=== PATIENT | female | born 1935 | race Caucasian/White ===

== ENCOUNTER → 2016-11-14 | Outpatient (CLI) | payer MEDICARE, OTHER ==
[~2016-11-14] MED LIST: ACIPHEX20 MG PO; ALDACTONE DPS25 MG PO; CALTRATE-600 W600 MG PO; FLEXERIL-DPS10 MG PO; LIPITOR40 MG PO; OXY IR DPS5 MG PO; TOPROL XL200 MG PO; TOVIAZ8 MG PO; TYLENOL EXTRA500 M1 PO; ULTRAM DPS50 MG PO; XARELTO10 MG PO
== END | disposition home or self-care (01) ==
LOC: PTH.S 10:06 → EDBD 10:06 → PTH.S 16:44
DX: Z01.818 Encounter for other preprocedural examination (principal); I10 Essential (primary) hypertension

== ENCOUNTER 2016-12-03 07:06 | Inpatient (IN) | payer MEDICARE, OTHER ==
[~2016-12-03] VITALS: Ht 157.5 cm; Wt 81.4 kg
--- NOTE | 2016-12-03 21:16 | OR ---
ADMIT: 12/03/2016 RM/LOC: 529 [facility] MR#: [id number] [address] [address] PRASHANTH LEVIN [address] [place] [address] Operative/Delivery Room Report SEX: F AGE: 81 : 1935 SURGERY DATE: 12/03/2016 SURGEON: Calixto Ricketts MD SPINE SPECIALIST: David Quezada PA-C PREOPERATIVE DIAGNOSIS: Left hip degenerative joint disease. POSTOPERATIVE DIAGNOSIS: Left hip degenerative joint disease. PROCEDURES: 1. Left anterior total hip arthroplasty. 2. Intra-articular Exparel block. ANESTHESIA: Spinal. COMPLICATIONS: None. ESTIMATED BLOOD LOSS: 100 mL. COMPONENTS: 1. A 54 mm Gription Highland cup. 2. One acetabular screw. 3. Hole eliminator. 4. A 36-mm neutral AltrX liner. 5. A 11-mm standard offset Corail stem. 6. A +5 x 36 mm metal head. DESCRIPTION OF PROCEDURE: The patient was taken to the operating room. The correct hip was identified and marked in the preop holding area. The preoperative leg lengths were documented. The patient received a spinal anesthetic. At that point, the patient had traction boots applied. The patient was placed on the [place] operative table. A perfect fluoroscopic AP pelvis was obtained along with a perfect AP of the operative hip and printed for preoperative templating purposes. At that point, the left hip was prepped and draped in a standard fashion and an anterior approach was performed. An incision was made lateral and inferior to the anterior superior iliac spine extending distally. Dissection was carried through subcutaneous tissue down to the tensor fascia. The fibers of the tensor fascia were identified in oblique fashion. The tensor fascia was then opened up along its muscle fibers. An Allis clamp was placed on the anterior fascial border. The tensor muscle itself was then swept off with blunt dissection and retracted posteriorly. At that point, the rectus was elevated off the anterior hip capsule. The lateral circumflex vessels were identified and cauterized. A Cobra retractor was placed above the superior femoral neck to retract the tensor posteriorly. The rest of the rectus was elevated off the anterior hip capsule and a second retractor was placed around the medial femoral neck. An L-shaped capsulotomy was perfomed through the hip capsule down to the intertrochanteric line and extended along the intertrochanteric line to the level of the lesser ADMIT: 12/03/2016 RM/LOC: 529 [facility] MR#: [id number] [address] [address] PRASHANTH LEVIN [address] [place] [address] Operative/Delivery Room Report SEX: F AGE: 81 : 1935 trochanter. Tag stitches were placed in the medial and lateral border of the hip capsule. We also released the superior hip capsule out of the trochanteric shoulder region. At that point, we placed our Cobra retractors in an intra- articular fashion for improved exposure to complete our capsular releases intra-articularly. A femoral neck cut was then made based on templating using the trochanteric shoulder as a bony landmark. We then externally rotated the hip 20 degrees for improved exposure and removed the femoral head from the acetabulum with no undue difficulty. Once the femoral head was removed, we again completed our capsular release around the inferior femoral neck to the level of lesser trochanter, released the superior capsule off the greater trochanteric shoulder in its entirety. We then placed slight traction on the femur in 20 degrees external rotation and placed a blunt-tip Cobra retractor over the anterior acetabular border. A second blunt Cobra was placed around the posterior acetabular border. All the remaining labrum was excised and a episiotomy performed to the inferior capsule to improve exposure. We cauterized the fovea and removed any remaining tissue in the depth of the acetabulum. We sequentially reamed the acetabulum under direct visualization up to a 53 size reamer. We elected to use a 54 size acetabular component. We put the acetabular component on a curved general office dispatcher and placed it within the depths of the acetabulum. At that point we removed all retractors; brought in fluoroscopy; and again obtained a perfect AP of the pelvis followed by a perfect AP of the hip. Under fluoroscopic guidance, we impacted the acetabular component in approximately 45 degrees of inclination and 20 degrees of anteversion. One acetabular screws were now placed with good purchase and no supplemental screws were required. Any peripheral osteophytes were circumferentially removed around the acetabular component. A hole eliminator was placed in the acetabular component and a neutral 36-mm AltrX liner was impacted within the acetabular component. A partial intra-articular block with Exparel was performed at this point in time. Once our acetabular preparation was completed, all the acetabular retractors were removed. We then exposed the femur by rotating it into neutral position and taking all traction off the femur. A femoral elevating hook was placed posterior to the trochanteric ridge. The foot was dropped down to 45 degrees and the leg maximally externally rotated no undue tension. We made sure our inferior capsular release was complete and placed a #1 retractor over the tip of the trochanter. Any remaining capsule was released off the tip of the trochanter and the piriformis tendon and a conjoined tendon were also released for exposure. At that point, you could feel the femur give, and we were able to elevate it up and out of the wound. The femur was externally rotated to approximately 120 degrees and the foot dropped to the floor as the leg was adducted. The trochanteric elevating hook was manually pulled in the anterior lateral direction as the elevating bar was raised to support it. At that point, we had excellent femoral exposure. A Malabar retractor was placed over the tip of the trochanter and a femoral neck retractor around the medial calcar region to improve exposure. The proximal femur was opened with a box osteotome and a canal finder was used to identify the femoral canal. The proximal femur was sequentially broached up to an 11 mm Corail broach. We did overream the distal canal to be sure we did not have a distal femoral fit. At that point, we left ADMIT: 12/03/2016 RM/LOC: 529 [facility] MR#: [id number] [address] [facility] [address] [place] [id number] PRASHANTH LEVIN [address] [place] [address] Operative/Delivery Room Report SEX: F AGE: 81 : 1935 the broach in the canal and calcar planed the neck. We then reduced the hip with a standard off-set femoral neck and a +5 x 36-mm head. All the retractors and femoral hook were removed. Using manual traction, we were able to reduce the hip into the acetabulum with no undue difficulty. A perfect fluoroscopic AP of the pelvis followed by a perfect AP of the hip was obtained and appropriate leg length and offset were confirmed. We replaced our femoral elevating hook posterior to the trochanter. A bone hook and manual traction were used to dislocate the hip, again externally rotating the femur in its entirety as the foot was dropped to the floor and leg adducted. We removed the trial components, replaced a Malabar retractor, and a femoral neck retractor. The broach was removed and the appropriate real components opened. We then impacted a size 11 mm standard offset Corail stem down the femoral canal with excellent press-fit. We impacted a +5 x 36 mm metal head on the trunnion. All retractors were removed, using manual traction the hip was reduced, and again was found to be stable. A final fluoroscopic AP pelvis and AP hip was obtained to confirm appropriate leg length, offset, and component positioning. We then irrigated out the wounds thoroughly and repaired the anterior capsular structures with #5 Ti-Cron. Our intra-articular Exparel block was completed including all soft tissues. The tensor fascia was repaired with a running and interrupted 0 Vicryl suture. We closed subQ with 2-0 Vicryl and ran a subcuticular Monocryl stitch. A Prineo hip wound dressing was applied and sterile dressings applied. The patient was taken off the HANA table, transferred to a standard OR bed, and taken to the recovery room in stable condition with no complications. Calixto Ricketts MD/ jessica JOB #: [id number] CC: Calixto Ricketts, Attending Physician Xiao Garland, Family Physician
[2016-12-07] MEDS ORDERED: LIPITOR40 MG PO (10:43)
[2016-12-07] MEDS ORDERED: TOPROL XL200 MG PO (10:43)
[2016-12-07] MEDS ORDERED: ACIPHEX20 MG PO (10:43)
[2016-12-07] MEDS ORDERED: TOVIAZ8 MG PO (10:43)
[2016-12-07] MEDS ORDERED: OXY IR DPS5 MG PO (10:44)
[2016-12-07] MEDS ORDERED: ULTRAM DPS50 MG PO (10:44)
[2016-12-07] MEDS ORDERED: ALDACTONE DPS25 MG PO (10:44)
[2016-12-07] MEDS ORDERED: XARELTO10 MG PO (10:44)
--- NOTE | 2016-12-25 16:15 | HP ---
ADMIT: 12/03/2016 RM/LOC: W.02 [facility] MR#: [id number] [address] [place] [id number] PRASHANTH LEVIN [address] [place] [address] Pre-OP History and Physical SEX: F AGE: 81 : 1935 DATE OF SERVICE: CHIEF COMPLAINT: Hip pain. HISTORY OF PRESENT ILLNESS: The patient is a 81-year-old female, longstanding history of left hip pain. Left hip pain limits her activity. She has failed conservative care, now being admitted for left total hip arthroplasty. PAST MEDICAL HISTORY: Include arthritis, history of DVT, reflux, and hypertension. PAST SURGICAL HISTORY: Include back surgery, carpal tunnel release, and cataracts. MEDICATIONS: Include: 1. Mupirocin. 2. Meloxicam. 3. Calcium. 4. Metoprolol. 5. Atorvastatin. 6. Spironolactone. 7. Xarelto. 8. Toviaz. ALLERGIES: NONE. SOCIAL HISTORY: Denies any tobacco or alcohol use. REVIEW OF SYSTEMS: Negative. PHYSICAL EXAMINATION: Healthy-appearing female in no acute distress. Walks with an antalgic gait on the left lower extremity. Pain with any motion of left hip. We can internally rotate to 20 degrees, externally rotate to 35 degrees, flex to 100. Legs neurovascularly intact. ADMIT: 12/03/2016 RM/LOC: W.02 [facility] MR#: [id number] [address] [place] [phone] ISSASAEEDDEYSIPRASHANTH A [address] [place] [address] Pre-OP History and Physical SEX: F AGE: 81 : 1935 DIAGNOSTIC DATA: X-rays AP, lateral shows advanced left hip arthritis. No joint space remaining. IMPRESSION: 1. Advanced left hip degenerative joint disease. 2. History of deep venous thrombosis. PLAN: Talked about different options. Failed conservative care. Plan on doing left anterior total hip arthroplasty. She is aware of different risks, benefits, and options and agreed to proceed. She has been seen and cleared from a medical standpoint. Calixto Ricketts MD/ jessica JOB #: [id number] CC: Calixto Ricketts, Attending Physician UNKNOWN, Family Physician
--- NOTE | 2016-12-25 16:15 | DS ---
ADMIT: 12/03/2016 RM/LOC: 529 [facility] MR#: [id number] [address] [address] PRASHANTH LEVIN [address] [place] [address] General Discharge Summary SEX: F AGE: 81 : 1935 ADMISSION DATE: 12/03/2016 DISCHARGE DATE: 12/06/2016 REASON FOR ADMISSION: Elective left total hip arthroplasty after failed conservative management for osteoarthritis. PREOPERATIVE DIAGNOSIS: Left hip degenerative joint disease. POSTOPERATIVE DIAGNOSIS: Left hip degenerative joint disease. PROCEDURE PERFORMED: Left anterior total hip arthroplasty. ANESTHETIC: Spinal. COMPLICATIONS: None. ESTIMATED BLOOD LOSS: 100 mL. SURGEON: Calixto Ricketts MD. REHABILITATION PROGRAM COORDINATOR: David Quezada PA-C ACTIVE MEDICAL PROBLEMS: 1. Osteoarthritis. 2. History of DVT. 3. Reflux. 4. Hypertension. HOSPITAL COURSE: Prashanth was admitted on 12/03/2016 for elective left total hip arthroplasty, it was completed successfully by Dr. Ricketts from a direct anterior approach. There were no complications. Postoperatively, she did very well. Pain controlled with use of the intraoperative pain injection, cocktail, as well as oral analgesics. Postop day #1 and #2, were fairly comfortable. Day #3, she had some soreness but stabilized. In the evening on day of surgery into the overnight on to postoperative day #1, she did have a couple of lower blood pressures in the 80/45 range. She held her antihypertensive and was administered 500 mL bolus of normal saline. She did well with this. Pressures stabilized and was otherwise asymptomatic. On postoperative day #1 in the evening, and on to postoperative day #2, she had some mild nausea, so they increased her Zofran to 8 mg q.6 hours and this did well for her. She did experience mild acute surgical blood-loss anemia. Hemoglobin dropped to 9.0, but remained hemodynamically stable and not requiring transfusion. Postop day #3, she was stable and ready for discharge with plans to go to senior living for postoperative rehabilitation. DISCHARGE MEDICATIONS: 1. Lipitor 40 mg daily. ADMIT: 12/03/2016 RM/LOC: 529 [facility] MR#: [id number] [address] [address] PRASHANTH LEVIN [address] [place] [address] General Discharge Summary SEX: F AGE: 81 : 1935 2. Fesoterodine 8 mg daily. 3. Metoprolol 200 mg daily. 4. Rabeprazole 20 mg daily. 5. Spironolactone 25 mg daily. 6. Tramadol 50 mg 1 to 2 q.6 p.r.n. 7. OxyIR 5 mg, 1 to 2 q.4h p.r.n. 8. Xarelto 10 mg daily for 30 days. 9. Tylenol 650 mg q.6 p.r.n. DISCHARGE INSTRUCTIONS: Prashanth will undergo therapy per anterior total hip arthroplasty protocol. Follow in the Orthopedic office in 2 weeks for wound check, 6 weeks with x-rays. Follow up with primary care as directed. David Quezada PA-C / Calixto Ricketts MD / jessica JOB #: [id number] CC: Calixto Ricketts MD, Attending Physician Xiao Garland MD, Family Physician
[2016-12-29] MEDS ORDERED: TYLENOL EXTRA500 M1 PO (08:34)
[2016-12-29] MEDS ORDERED: CALTRATE-600 W600 MG PO (08:35)
[2016-12-29] MEDS ORDERED: FLEXERIL-DPS10 MG PO (08:35)
== END 2016-12-06 13:40 | disposition home or self-care (01) | DRG 470 ==
LOC: EDBD → WOR 07:06 → 5MS 07:06
PROVIDERS: ADMIT Orthopaedic Surgery
PROC: 0SRB02A Replacement of Left Hip Joint with Metal on Polyethylene Synthetic Substitute, Uncemented, Open Approach (ICD-10-PCS; principal; 2016-12-03)
DX: M16.12 Unilateral primary osteoarthritis, left hip (principal); I10 Essential (primary) hypertension; D62 Acute posthemorrhagic anemia; K21.9 Gastro-esophageal reflux disease without esophagitis; Z86.718 Personal history of other venous thrombosis and embolism; Z86.73 Personal history of transient ischemic attack (TIA), and cerebral infarction without residual deficits

== ENCOUNTER 2016-12-22 13:12 | Emergency (ER) | payer MEDICARE, OTHER ==
[~2016-12-22 13:12] MED LIST changes: -CALTRATE-600 W600 MG PO; -FLEXERIL-DPS10 MG PO; -TYLENOL EXTRA500 M1 PO
--- NOTE | 2016-12-27 19:07 | ER ---
ADMIT: 12/22/2016 RM/LOC: ER [facility] MR#: [id number] 2620 [facility] [address] [place] [phone] PRASHANTH LEVIN [address] [place] [address] Emergency Room Report SEX: F AGE: 81 : 1935 DATE: 12/22/2016 SUBJECTIVE: The patient has had a left hip replaced 3 weeks ago, was doing well. Suddenly, she complained of pain. She has some muscle contraction. She is very concerned. 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 PAST MEDICAL HISTORY: Includes: 1. High cholesterol. 2. Hypertension. 3. Laminectomy. 4. Left hip replacement. PHYSICAL EXAMINATION: VITAL SIGNS: Within normal limits. States she has a temperature of 99.1. GENERAL: She is alert and oriented. Does not seem to have any signs of infection. Her wound looks very nice, has healed well. There is no redness. There is no warmth. I went ahead and I did an ultrasound to rule out DVT, and an x-ray in view of the pain that she was complaining about. Her left hip prosthesis is intact. No new findings. Ultrasound is negative for DVT. She did not know if she had to be admitted to the ER for pain management. I contacted Dr. Dwyer. We discussed her going home with her daughter for the night and given her some muscle relaxers, so I wrote for Flexeril and [place]. She cannot take NSAIDs, but she has done slightly well with the morphine we gave her here in the ER. CLINICAL IMPRESSION: Left hip pain post surgery, muscle fasciculation. Muscle relaxers were added to her therapy and a followup tomorrow. Call Dr. Garland's office. See if she can get visiting nurses or skilled care. Follow up instructions given and awareness of pain medication with muscle relaxer. They can increase the probability of her having another fall. She is to be very careful when using it and not to use her meloxicam if she uses [place]. The patient verbalized understanding. Released to home with her daughter. KOURTNEY Perry / Alok Galeana MD / jessica JOB #: [id number] CC: Benji De La Torre MD, Attending Physician Xiao Garland MD, Family Physician
[2016-12-29] MEDS ORDERED: TYLENOL EXTRA500 M1 PO (08:34)
[2016-12-29] MEDS ORDERED: CALTRATE-600 W600 MG PO (08:35)
[2016-12-29] MEDS ORDERED: FLEXERIL-DPS10 MG PO (08:35)
== END 2016-12-22 18:50 | disposition home or self-care (01) ==
LOC: ER 13:12 → EDBD 13:12 → ER 13:12
DX: M25.552 Pain in left hip (principal); R25.3 Fasciculation; I10 Essential (primary) hypertension; Z79.899 Other long term (current) drug therapy

== ENCOUNTER → 2016-12-24 | Outpatient (CLI) | payer MEDICARE, OTHER ==
[~2016-12-24] MED LIST changes: +CALTRATE-600 W600 MG PO; +FLEXERIL-DPS10 MG PO; +TYLENOL EXTRA500 M1 PO
== END | disposition home or self-care (01) ==
LOC: PTH.S 16:57
DX: M25.552 Pain in left hip (principal); M25.452 Effusion, left hip

== ENCOUNTER 2016-12-26 04:09 | Inpatient (IN) | payer MEDICARE, OTHER ==
[~2016-12-26] VITALS: Ht 157.5 cm; Wt 79.9 kg
[~2016-12-26 04:09] MED LIST changes: -CALTRATE-600 W600 MG PO; -FLEXERIL-DPS10 MG PO; -TYLENOL EXTRA500 M1 PO
--- NOTE | 2016-12-26 06:55 | ER ---
ADMIT: 12/26/2016 RM/LOC: ER [facility] MR#: [id number] 2620 [facility] [address] [place], [place] [address] PRASHANTH LEVIN [address] [place] [address] Emergency Room Report SEX: F AGE: 81 : 1935 DATE: 12/26/2016 TIME: 0409 hours. Please refer to my T-sheet for complete H and P. HISTORY OF PRESENT ILLNESS: Briefly, the patient is a 81-year-old, who had a hip replaced on December 03. She was doing well for a while, but then she started having more pain in the hip. She has actually been seen in the ER, seen by Dr. Ricketts and followed, but she says she came in tonight because the pain is getting worse. It is just not improving. She had blood work done on the , today's early hours of the , and has not heard the results. PHYSICAL EXAMINATION: VITAL SIGNS: Here are stable. HEENT: Grossly normal. ABDOMEN: Soft. EXTREMITIES: Left lower extremity is swollen, tender in the thigh and very tense. The incision is not erythematous, looks well-healed. She has some ecchymosis distally. No pain in the calf, and strong pulses. EMERGENCY DEPARTMENT COURSE: I repeated her CBC, it was normal except hemoglobin 6.8, the one drawn about 36 hours ago was 7.7. Chemistries were normal except sodium 134, BUN 28, glucose 129. We did an ultrasound that revealed a lot large left thigh hematoma with a pseudoaneurysm, what appeared to be the deep femoral artery. At this point, I talked to Dr. Dwyer. I typed and crossed her for 1 unit of packed cells. We are adding coags, we will transfuse when they are ready. She will be admitted to the hospital. ASSESSMENT: 1. Left thigh pseudoaneurysm. 2. Left hip hematoma. 3. Anemia. 4. Status post left hip replacement. PLAN: Admit to the hospital. Leonel Porter MD/ jessica JOB #: [id number] CC: Leonel Porter MD, Attending Physician Xiao Garland MD, Family Physician
[2016-12-29] MEDS ORDERED: TYLENOL EXTRA500 M1 PO (08:34)
[2016-12-29] MEDS ORDERED: FLEXERIL-DPS10 MG PO (08:35)
[2016-12-29] MEDS ORDERED: CALTRATE-600 W600 MG PO (08:35)
--- NOTE | 2017-01-03 12:27 | DS ---
ADMIT: 12/26/2016 RM/LOC: 405 [facility] MR#: [id number] 2620 [facility] [address] [place], [place] [address] POONAMDEYSIPRASHANTH A [address] [place] [address] Discharge Summary SEX: F AGE: 81 : 1935 ADMISSION DATE: 12/26/2016 DISCHARGE DATE: 12/28/2016 FINAL DIAGNOSIS: 1. Acute blood loss anemia. 2. Thigh hematoma from femoral artery bleed. 3. Interventional Radiology left thigh hematoma aspirate and left leg angiogram with distal femoral artery pseudoaneurysm. 4. Acute blood loss anemia. 5. Hypertension. 6. Recent total hip arthroplasty. REASON FOR ADMISSION: This is a 81-year-old female, with a total hip arthroplasty about three weeks ago. She presented with increased pain and swelling in her leg and decreased hemoglobin. She was seen for questionable pseudoaneurysm and femoral artery bleed. Interventional Radiology evaluated her with angiogram and found there was a perforating artery over the leak but no real aneurysm. She was given a unit of blood initially. Hemoglobin came up to 8.4. She felt much better after that. Was given a little IV fluid. She was seen by Dr. Ricketts. Hip was evaluated and showed no signs of infection. In fact, a hip aspirate was obtained and this was negative for infection. She continued to work with therapy and by the was feeling pretty well. Blood pressure was 114/50, mildly elevated temp at 99.6 and pulse of 77. She was feeling well enough to go home so she was set up with home health care which she had before and was discharged to home. No anticoagulation because of her acute blood loss anemia. Other medications will be Lipitor 40 mg daily, Rabeprazole 20 mg daily, Toprol-XL 200 mg daily, Toviaz 8 mg daily, Extra Strength Tylenol 500 mg b.i.d., Flexeril 10 mg t.i.d. p.r.n. and calcium 600 mg daily. She will hold her spironolactone for now. She will continue with PT and OT for home health care. Regular diet. She will have a BMP and a CBC in [address] Garland in 2 weeks. Gus Crowder MD/ rochelle JOB #: [id number] CC: Xiao Garland MD, Attending Physician Xiao Garland MD, Family Physician
--- NOTE | 2017-01-06 07:53 | HP ---
ADMIT: 12/26/2016 RM/LOC: 405 [facility] MR#: [id number] [address] [address] PRASHANTH LEVIN [address] [place] [address] History and Physical SEX: F AGE: 81 : 1935 DATE OF SERVICE: CHIEF COMPLAINT: Left thigh pain. HISTORY OF PRESENT ILLNESS: Ms. Levin is a very pleasant, 81-year-old female. She has a past medical history significant for hypertension, GERD, history of anterior cerebral hematoma status post craniotomy as well as status post cholecystectomy and recent left total hip arthroplasty who presented to the ER with a complaint of left thigh pain. The patient actually had been doing wonderfully up until the weekend. She reports that over the weekend approximately 5 days ago she started experiencing some left thigh pain. She actually went into the ER because of swelling on Friday prior to admission and had a venous Doppler, which was negative. She was seen back in the office on Friday at my office and was noted to have a drop in her hemoglobin. She was given pain medications and was followed up with Ortho on Friday. When Ortho saw her, there was some concern whether or not there was just a hematoma versus a more deep-seated type infection. She was monitored closely as an outpatient, however, and was actually supposed to be seen back in our office today, but reports that overnight her pain just became so severe that she was unable to tolerate it. She, therefore, went to the ER, they did an ultrasound and showed a 7.5 cm hematoma as well as possible pseudoaneurysm. She also was noted to have a hemoglobin of 6.8, and therefore, felt warranted admission for further evaluation and treatment. She otherwise reports that she is lightheaded and dizzy when she is up moving around. She also feels short of breath when trying to exert herself. She reports that she has not had any other signs or symptoms of blood loss. No black stools. No tarry stool. She has been constipated, not eating a whole lot. PAST MEDICAL HISTORY: Significant for: 1. Status post left total hip arthroplasty on 12/03/2016. 2. GERD. 3. Hypertension. 4. Hyperlipidemia. 5. Anterior cerebral hematoma status post craniotomy. Her craniotomy was in 1996. 6. Status post cholecystectomy in 2006. 7. She is status post back surgery in 2014. 8. She is status post carpal tunnel release. 9. Status post cataract surgery. ALLERGIES: NO KNOWN MEDICAL ALLERGIES EXCEPT SHE IS INTOLERANT OF ASPIRIN. MEDICATIONS: 1. Atorvastatin 40 mg p.o. daily. 2. Metoprolol 200 mg p.o. daily. 3. Fesoterodine 8 mg p.o. daily. 4. Raberprazole 20 mg p.o. daily. 5. Spironolactone and hydrochlorothiazide 25/25 p.o. daily. 6. Tylenol p.o. b.i.d. ADMIT: 12/26/2016 RM/LOC: 405 [facility] MR#: [id number] [address] [address] PRASHANTH LEVIN [address] [place] [address] History and Physical SEX: F AGE: 81 : 1935 7. Calcium. 8. Cyclobenzaprine 10 mg p.o. t.i.d. p.r.n. SOCIAL HISTORY: She is . She has a very supportive family. She has never smoked. She uses wine 1-2 times a week. FAMILY HISTORY: Positive for heart disease, cancer, hypertension, but no diabetes. REVIEW OF SYSTEMS: Obtained, was otherwise as noted above. PHYSICAL EXAMINATION: GENERAL: She is pale. She is alert. She is in no apparent distress. HEENT: Pupils are equal, round, reactive. Oropharynx has dry mucous membranes. NECK: Supple. HEART: Normal rate with a regular rhythm. LUNGS: Diminished breath sounds bilaterally. ABDOMEN: Soft. Bowel sounds are present. EXTREMITIES: Her left thigh is quite swollen and firm. She has ecchymoses from her left lower buttock down to below her knee on the left. She does have palpable distal pulses. ASSESSMENT/PLAN: 1. Left thigh swelling with possible pseudoaneurysm. I did discuss the case with Dr. Jo as well as Dr. Ricketts. We will go ahead and have her set up for CTA of her leg. 2. Acute blood loss anemia. We will plan to give her 1 unit of packed red blood cells, hold her blood thinner, which actually has been on hold for several days now and repeat an H and H 2 hours after blood is in. 3. Hypertension. Continue her metoprolol but hold her spironolactone and hydrochlorothiazide. Otherwise we will consult Dr. Ricketts so that he is aware and on the case. Xiao Garland MD/ jessica JOB #: [id number] CC: Xiao Garland, Attending Physician Xiao Garland, Family Physician
== END 2016-12-28 11:44 | disposition home health service (06) | DRG 908 ==
LOC: ER 04:09 → 4PCU 05:35
PROVIDERS: ADMIT Internal Medicine
PROC: 0YB Anatomical Regions, Lower Extremities, Excision (ICD-10-PCS; principal; 2016-12-26)
PROC: 30233N1 Transfusion of Nonautologous Red Blood Cells into Peripheral Vein, Percutaneous Approach (ICD-10-PCS; principal; 2016-12-26)
PROC: 04VY3DZ Restriction of Lower Artery with Intraluminal Device, Percutaneous Approach (ICD-10-PCS; principal; 2016-12-26)
PROC: B41C1ZZ Fluoroscopy of Pelvic Arteries using Low Osmolar Contrast (ICD-10-PCS; principal; 2016-12-26)
PROC: B41G1ZZ Fluoroscopy of Left Lower Extremity Arteries using Low Osmolar Contrast (ICD-10-PCS; principal; 2016-12-26)
DX: I97.620 Postprocedural hemorrhage of a circulatory system organ or structure following other procedure (principal); D62 Acute posthemorrhagic anemia; I10 Essential (primary) hypertension; K21.9 Gastro-esophageal reflux disease without esophagitis; S70.12XA Contusion of left thigh, initial encounter; Z96.642 Presence of left artificial hip joint